=== PATIENT | male | born 1985 | race Caucasian/White ===

== ENCOUNTER 2020-08-10 20:51 | Emergency (ER) | payer OTHER ==
[~2020-08-10] VITALS: Ht 170.2 cm; Wt 77.1 kg
[2020-08-10] MEDS ORDERED: TRIAMCINOLONE A15 G1 TOP (21:11)
== END 2020-08-10 22:35 | disposition home or self-care (01) ==
LOC: ED 20:51
DX: S10.95XA Superficial foreign body of unspecified part of neck, initial encounter (principal); Z23 Encounter for immunization; W45.8XXA Other foreign body or object entering through skin, initial encounter
CPT/HCPCS: 90471; 90715; 99283